=== PATIENT | female | born 1975 | race Asian ===

== ENCOUNTER 2019-08-22 19:12 | Emergency (ER) | payer BC, OTHER ==
[2019-08-22 19:42] LABS: ABS Eosinophils 0.2 10^3/ul (0-0.6); ABS Lymphocytes 1.4 10^3/ul (1.0-4.8); ABS Monocytes 0.4 10^3/ul (0-0.8); ABS Neutrophils 3.6 10^3/ul (1.5-7.7); Eosinophil % 3.2 %; Hematocrit 37 % (35-47); Hemoglobin 12.6 g/dL (12.0-16.0); Lymphocyte % 24.3 %; Mean Corpuscular HGB Conc 34 g/dL (31-36); Mean Corpuscular Hemoglobin 33 pg (27-31); Mean Corpuscular Volume 95 fL (80-97); Mean Platelet Volume 6.7 fL (7.4-10.4); Nucleated Red Blood Cells % 0.1; Platelet Count 221 10^3/uL (150-450); Red Blood Count 3.84 10^6 /uL (3.70-4.87); Red Cell Distribution Width 12 % (10-15); White Blood Count 5.6 10^3/uL (3.5-10.8)
[2019-08-22 19:54] LABS: INR 1.26 (0.82-1.09)
[2019-08-22 19:58] LABS: ALT 10 U/L (7-52); AST 16 U/L (13-39); Albumin 4.1 g/dL (3.2-5.2); Albumin/Globulin Ratio 1.2 (1-3); Alkaline Phosphatase 40 U/L (34-104); Anion Gap 6 mmol/L (2-11); BUN/Creatinine Ratio 21.7 (8-20); Blood Urea Nitrogen 15 mg/dL (6-24); CO2 Carbon Dioxide 28 mmol/L (22-32); Calcium 9.3 mg/dL (8.6-10.3); Chloride 104 mmol/L (101-111); EGFR African American 112.9 (>60); EGFR Non-African American 93.3 (>60); Globulin 3.5 g/dL (2-4); Glucose 106 mg/dL (70-100); Potassium 3.6 mmol/L (3.5-5.0); Sodium 138 mmol/L (135-145); Total Protein 7.6 g/dL (6.4-8.9)
--- NOTE | 2019-08-22 20:47 | ED ---
HPI Chest Pain - HPI Summary HPI Summary: 43 year old F referred to [facility] by her primary care provider complains of chest pain since yesterday 08/21/19 evening. Patient states she initially had upper back pain in between her shoulder blades described as constant muscle cramping which started Thursday08/20/19 morning after she woke up. States she has not taken any pain medications to treat her upper back pain. Yesterday 08/21/19 evening, patient developed persistent mid-sternal chest pain described as pressure radiating to her left anterior shoulder rated 4/10 in severity currently. States she has not taken any pain medications to treat her chest pain. Symptoms aggravated by leaning forward, swallowing, burping, deep inspiration, reclining, sitting up. No change in symptoms with eating food. Symptoms alleviated by nothing. Called primary care provider this morning and was referred to ED. Patient reports burping and burning sensation in her throat. PMHx: GERD since 2006 for which she takes Plaquenil 200 mg PO daily. States these symptoms are not similar to GERD episodes. Denies nausea/vomiting, diarrhea, constipation, fever, headache, shortness of breath, cough. - History of Current Complaint Chief Complaint: EDChestPainROMI Time Seen by Provider: 08/22/19 19:54 Hx Obtained From: Patient Onset/Duration: Started Days Ago - yesterday 08/21/19 evening, Still Present Timing: Constant Current Severity: Moderate Pain Intensity: 4 Pain Scale Used: 0-10 Numeric Chest Pain Location: Mid Sternal Chest Pain Radiates: Yes Chest Pain Radiates To:: Shoulder - left anterior Character: Pressure/Squeezing Aggravating Factor(s): Other: - leaning forward, swallowing, burping, deep inspiration, reclining, sitting up Alleviating Factor(s): Nothing Associated Signs and Symptoms: Positive: Negative - nausea/vomiting, diarrhea, constipation, fever, headache, shortness of breath, cough, Other: - upper back pain in between her shoulder blades, burping, burning sensation in her throat - Allergy/Home Medications Allergies/Adverse Reactions: Allergies Allergy/AdvReac Type Severity Reaction Status Date / Time MS Sulfa Antibiotics Allergy Unknown Verified 07/30/14 10:40 [Sulfa Antibiotics] Reaction Details Home Medications: Home Medications Hydroxychloroquine TAB* [Plaquenil TAB*] 200 mg PO DAILY 08/22/19 [History Confirmed 08/22/19] PMH/Surg Hx/FS Hx/Imm Hx Previously Healthy: No - hx lupus Endocrine/Hematology History: Denies: Hx Anemia GI History: Reports: Hx Gastroesophageal Reflux Disease - Surgical History Surgery Procedure, Year, and Place: c section 2016 - Immunization History Immunizations Up to Date: Yes Infectious Disease History: No Infectious Disease History: Denies: History Other Infectious Disease, Traveled Outside the [place] in Last 30 Days - Family History Family History: NEG: breast CA - Social History Alcohol Use: None Substance Use Type: Reports: None Smoking Status (MU): Never Smoked Tobacco Review of Systems Negative: Fever Positive: Other - burning sensation in her throat Positive: Chest Pain Negative: Shortness Of Breath, Cough Gastrointestinal: Negative - constipation Positive: Other - burping. Negative: Vomiting, Diarrhea, Nausea Positive: Other - upper back pain in between her shoulder blades Negative: Headache All Other Systems Reviewed And Are Negative: Yes Physical Exam - Summary Physical Exam Summary: Appearance: Well-appearing, Well-nourished, lying in bed comfortably Skin: Warm, dry, no obvious rash Eyes: sclera anicteric, no conjunctival pallor ENT: mucous membranes moist, pharynx appears normal Neck: Supple, nontender Respiratory: Clear to auscultation, no signs of respiratory distress Cardiovascular: Normal S1, S2. No murmurs. Normal distal pulses in tibial and radial bilaterally. Abdomen: Soft, nontender, normal active bowel sounds present Musculoskeletal: Normal, Strength/ROM Intact Neurological: A&Ox3, awake and alert, mentation is normal, speech is fluent and appropriate Psychiatric: affect is normal, does not appear anxious or depressed Triage Information Reviewed: Yes Vital Signs On Initial Exam: Initial Vitals Temp Pulse Resp BP Pulse Ox 98.7 F 93 18 103/73 98 08/22/19 19:18 08/22/19 19:18 08/22/19 19:18 08/22/19 19:18 08/22/19 19:18 Vital Signs Reviewed: Yes Procedures - Sedation Patient Received Moderate/Deep Sedation with Procedure: No Diagnostics - Vital Signs Vital Signs Temp Pulse Resp BP Pulse Ox 08/22/19 19:18 98.7 F 93 18 103/73 98 - Laboratory Lab Results: Lab Results 10/14/19 10/14/19 10/14/19 Range/Units 19:34 19:34 19:34 WBC 5.6 (3.5-10.8) 10^3/uL RBC 3.84 (3.70-4.87) 10^6 /uL Hgb 12.6 (12.0-16.0) g/dL Hct 37 (35-47) % MCV 95 (80-97) fL MCH 33 H (27-31) pg MCHC 34 (31-36) g/dL RDW 12 (10-15) % Plt Count 221 (150-450) 10^3/uL MPV 6.7 L (7.4-10.4) fL Neut % (Auto) 64.0 % Lymph % (Auto) 24.3 % [place] % (Auto) 7.7 % Eos % (Auto) 3.2 % Baso % (Auto) 0.8 % Absolute Neuts (auto) 3.6 (1.5-7.7) 10^3/ul Absolute Lymphs (auto) 1.4 (1.0-4.8) 10^3/ul Absolute Monos (auto) 0.4 (0-0.8) 10^3/ul Absolute Eos (auto) 0.2 (0-0.6) 10^3/ul Absolute Basos (auto) 0.0 (0-0.2) 10^3/ul Absolute Nucleated RBC 0.0 10^3/ul Nucleated RBC % 0.1 INR (Anticoag Therapy) 1.26 H (0.82-1.09) Sodium 138 (135-145) mmol/L Potassium 3.6 (3.5-5.0) mmol/L Chloride 104 (101-111) mmol/L Carbon Dioxide 28 (22-32) mmol/L Anion Gap 6 (2-11) mmol/L BUN 15 (6-24) mg/dL Creatinine 0.69 (0.51-0.95) mg/dL Est GFR ( Amer) 112.9 (>60) Est GFR (Non-Af Amer) 93.3 (>60) BUN/Creatinine Ratio 21.7 H (8-20) Glucose 106 H (70-100) mg/dL Calcium 9.3 (8.6-10.3) mg/dL Total Bilirubin 0.30 (0.2-1.0) mg/dL AST 16 (13-39) U/L ALT 10 (7-52) U/L Alkaline Phosphatase 40 (34-104) U/L Troponin I 0.00 (<0.04) ng/mL Total Protein 7.6 (6.4-8.9) g/dL Albumin 4.1 (3.2-5.2) g/dL Globulin 3.5 (2-4) g/dL Albumin/Globulin Ratio 1.2 (1-3) Result Diagrams: 08/22/19 19:34 08/22/19 19:34 Lab Statement: Any lab studies that have been ordered have been reviewed, and results considered in the medical decision making process. - Radiology CXR Radiology Interpretation Completed By: ED Physician Summary of Radiographic Findings: No acute process. Pending official report - EKG 1914 Cardiac Rate: NL - 76 BPM EKG Rhythm: Sinus Rhythm Summary of EKG Findings: NSR at 76 BPM, P waves, QRS complex, and T waves are within normal limits, T waves and intervals are normal, no ischemic changes. This is a normal EKG. Re-Evaluation - Re-Evaluation First Eval Re-Evaluation Time: 22:00 Comment: patient given results of her tests. understands discharge instructions Chest Pain Course/Dx - Course Course Of Treatment: 43 year old F complains of persistent mid-sternal chest pain described as pressure radiating to her left anterior shoulder rated 4/10 in severity since yesterday 08/21/19 evening. Initially started as upper back pain in between her shoulder blades described as constant muscle cramping which started Thursday08/20/19 morning after she woke up. Bloodwork results with no significant abnormalities except for MCH 33, MPV 6.7, INR 1.26, BUN/creatinine 21.7, glucose 106. Troponin I is 0.00. An EKG shows NSR at 76 BPM, P waves, QRS complex, and T waves are within normal limits, T waves and intervals are normal, no ischemic changes. This is a normal EKG. CXR shows No acute process. Patient will be discharged home with follow up from her primary cre provider. Patient was instructed to return to Emergency Department for new or worsening symptoms. Patient understands and is agreeable to this plan. - Diagnoses Provider Diagnoses: Chest wall pain Discharge ED - Sign-Out/Discharge Documenting (check all that apply): Patient Departure - Discharge - Discharge Plan Condition: Good Disposition: HOME Patient Education Materials: Chest Wall Pain (ED) Referrals: Aleah Lunsford MD [Primary Care Provider] - Additional Instructions: I think your pain is most likely coming from the muscles and other tissues of the chest wall and back, but it is certainly possible that your GERD is acting up again, so going on an empiric trial of a PPI such as prilosec or nexium would not be unreasonable. If you take it and the symptoms resolve over the next couple of weeks it still could be either one, but you could stop the PPI and see what happens. If it recurs I would see your regular doctor as you may need a referral to GI and/or longer PPI treatment. The important thing for tonight is making sure your symptoms are not from something more worrisome, such as a heart or lung problem, and the evaluation we did tonight was able to exclude any of those serious things. - Billing Disposition and Condition Condition: GOOD Disposition: Home - Attestation Statements Document Initiated by Jhony: Yes Documenting Scribe: Alexandria Santos Provider For Whom Jhony is Documenting (Include Credential): Luis Kingsley MD Scribe Attestation: I, Alexandria Santos, scribed for Luis Kingsley MD on 08/24/19 at 1916. Scribe Documentation Reviewed: Yes Provider Attestation: The documentation as recorded by the [email or web address] accurately reflects the service I personally performed and the decisions made by me, Luis Kingsley MD Status of Scribe Document: Viewed
[2019-08-22 22:25] VITALS: BP 100/73
[2019-08-22 22:36] LABS: HCG Pregnancy < 0.60 mIU/mL
== END 2019-08-22 22:23 | disposition home or self-care (01) ==
LOC: ED 19:12
DX: R07.89 Other chest pain (principal); M54.9 Dorsalgia, unspecified; Z79.899 Other long term (current) drug therapy; K21.9 Gastro-esophageal reflux disease without esophagitis
CPT/HCPCS: 36415; 71046; 80053; 84484; 84702; 85025; 85610; 93005; 99282